=== PATIENT | male | born 2000 | race African-American/Black ===

== ENCOUNTER 2022-11-28 17:23 | Emergency (ER) | payer SELFPAY ==
[~2022-11-28] VITALS: Ht 182.9 cm; Wt 74.0 kg
== END 2022-11-28 17:46 | disposition home or self-care (01) ==
LOC: FSED 17:30
DX: L72.3 Sebaceous cyst (principal); F17.210 Nicotine dependence, cigarettes, uncomplicated
CPT/HCPCS: 99282